=== PATIENT | male | born 1935 | race Caucasian/White ===

== ENCOUNTER 2019-01-30 17:32 | Observation (INO) ==
[2019-01-30 18:14] LABS: Basophils # 0.1 10*3/uL (0.0-0.2); Basophils % 0.5 % (0.0-0.8); Eosinophils # 0.5 10*3/uL (0.0-0.87); Eosinophils % 4.7 % (0.00-10.9); Hematocrit 43.2 VOL% (42.0-52.0); Hemoglobin 14.6 GM/DL (14.0-18.0); Immature Granulocytes % 0.2 %; Immature Granulocytes Absolute 0.02 #; Lymphocytes # 2.4 10*3/uL (1.4-4.0); Lymphocytes % 25.5 % (21.2-54.2); Mean Corpuscular HGB Conc 33.8 GM/DL (32-36); Mean Corpuscular Hemoglobin 31 PG (27-34); Mean Corpuscular Volume 91.9 FL (87-102); Mean Platelet Volume 9.6 FL (9.6-12.0); Monocytes # 0.7 10*3/uL (0.11-0.8); Monocytes % 7.7 % (1.7-12.7); Neutrophils # 5.8 10*3/uL (1.4-7.4); Neutrophils % 61.4 % (38.7-73.9); Platelet Count 193 T/CUMM (130-400); Red Cell Distribution Width 12.6 % (9.3-17.3); White Blood Count 9.5 T/CUMM (4-12)
[2019-01-30 18:43] LABS: Albumin 3.6 G/DL (3.4-5.0); Calcium 8.7 MG/DL (8.5-10.1); Osmolality,Calculated 282.3 MOS/KG (273-304); Potassium 3.6 MMOL/L (3.5-5.1); Thyroid Stimulating Hormone 0.943 uIU/ml (0.358-3.74); Total Protein 6.7 G/DL (6.4-8.3)
[2019-01-30 20:53] LABS: Barbiturates Screen,Urine Negative (Negative); Benzodiazepines Screen,Urine Negative (Negative); Cannabinoid Screen,Urine Negative (Negative); Opiate Screen,Urine Negative (Negative); Phencyclidine Screen,Urine Negative (Negative)
[2019-01-30] MEDS ORDERED: ACETAMINOPHEN 325 MG TABLET PO PRN (23:06)
[2019-01-30] MEDS ORDERED: DOCUSATE SODIUM 100 MG CAPSULE PO PRN (23:06)
[2019-01-30] MEDS ORDERED: FLUTICASONE 50 MCG NASAL SPRAY 16 GM BOTTLE BOTH NARES PRN (23:06)
[2019-01-30] MEDS: TERAZOSIN 5 MG CAPSULE PO SCH (23:40)
[2019-01-30] MEDS: SIMVASTATIN 20 MG TABLET PO SCH (23:40)
[2019-01-30] MEDS: CARVEDILOL 6.25 MG TABLET PO SCH (23:40)
[2019-01-31 00:07] LABS: Troponin I 0.162 NG/ML (0.00-0.045)
[2019-01-31 05:20] LABS: Calcium 8.3 MG/DL (8.5-10.1); Osmolality,Calculated 285.1 MOS/KG (273-304); Potassium 3.3 MMOL/L (3.5-5.1)
[2019-01-31 05:55] LABS: Troponin I 0.173 NG/ML (0.00-0.045)
[2019-01-31] MEDS: LISINOPRIL 20 MG TABLET PO SCH (08:49)
[2019-01-31] MEDS: ASPIRIN EC 81 MG TABLET PO SCH (08:49)
[2019-01-31] MEDS: NIACIN 500 MG TABLET PO SCH ×2 (08:49→22:08)
[2019-01-31] MEDS: MULTIVITAMIN (CENTRUM) TABLET PO SCH (08:50)
[2019-01-31] MEDS: PANTOPRAZOLE 40 MG TABLET PO SCH (08:50)
[2019-01-31] MEDS: CARVEDILOL 6.25 MG TABLET PO SCH ×2 (08:50→22:08)
[2019-01-31] MEDS: POTASSIUM CHLORIDE 20 MEQ TABLET PO PRN ×3 (08:50→13:39)
[2019-01-31] MEDS: OMEGA 3 ACID ETHYL ESTERS 1 GM CAPSULE PO SCH ×2 (08:50→22:08)
[2019-01-31] MEDS: amLODIPine 5 MG TABLET PO SCH (08:50)
[2019-01-31] MEDS ORDERED: NON-FORMULARY MEDICATION (Vit C/Vit E Ac/Lut/Copper/Zinc [Preservision Lutein Softgel] 1 E PO SCH (09:00)
[2019-01-31] MEDS ORDERED: ENOXAPARIN 40 MG/0.4 ML SYRINGE SUBCUT SCH (09:00)
[2019-01-31] MEDS ORDERED: ENOXAPARIN 60 MG/0.6 ML SYRINGE SUBCUT ONE (10:44)
[2019-01-31] MEDS: ENOXAPARIN 100 MG/ML SYRINGE SUBCUT SCH ×2 (10:44→22:08)
[2019-01-31] MEDS: COENZYME Q10 100 MG CAPSULE PO SCH (13:39)
[2019-01-31] MEDS: TERAZOSIN 5 MG CAPSULE PO SCH (22:08)
[2019-01-31] MEDS: SIMVASTATIN 20 MG TABLET PO SCH (22:08)
[2019-02-01 09:04] LABS: Risk Ratio 2.94; VLDL CHOLESTEROL 23.6 MG/DL
[2019-02-01] MEDS: PANTOPRAZOLE 40 MG TABLET PO SCH (09:23)
[2019-02-01] MEDS: NIACIN 500 MG TABLET PO SCH ×2 (09:23→22:03)
[2019-02-01] MEDS: ASPIRIN EC 81 MG TABLET PO SCH (09:23)
[2019-02-01] MEDS: MULTIVITAMIN (CENTRUM) TABLET PO SCH (09:23)
[2019-02-01] MEDS: CARVEDILOL 6.25 MG TABLET PO SCH ×2 (09:23→22:04)
[2019-02-01] MEDS: amLODIPine 5 MG TABLET PO SCH (09:23)
[2019-02-01] MEDS: OMEGA 3 ACID ETHYL ESTERS 1 GM CAPSULE PO SCH ×2 (09:23→22:03)
[2019-02-01] MEDS: LISINOPRIL 20 MG TABLET PO SCH (09:23)
[2019-02-01] MEDS: ENOXAPARIN 100 MG/ML SYRINGE SUBCUT SCH ×2 (09:24→22:04)
[2019-02-01] MEDS: COENZYME Q10 100 MG CAPSULE PO SCH (09:59)
[2019-02-01] MEDS: TERAZOSIN 5 MG CAPSULE PO SCH (22:04)
[2019-02-01] MEDS: SIMVASTATIN 20 MG TABLET PO SCH (22:04)
[2019-02-02 06:16] LABS: Calcium 8.3 MG/DL (8.5-10.1); Osmolality,Calculated 282.3 MOS/KG (273-304); Potassium 3.5 MMOL/L (3.5-5.1)
[2019-02-02 08:08] VITALS: BP 152/75
[2019-02-02] MEDS: CARVEDILOL 6.25 MG TABLET PO SCH (08:39)
[2019-02-02] MEDS: OMEGA 3 ACID ETHYL ESTERS 1 GM CAPSULE PO SCH (08:39)
[2019-02-02] MEDS: LISINOPRIL 20 MG TABLET PO SCH (08:39)
[2019-02-02] MEDS: ASPIRIN EC 81 MG TABLET PO SCH (08:40)
[2019-02-02] MEDS: PANTOPRAZOLE 40 MG TABLET PO SCH (08:40)
[2019-02-02] MEDS: amLODIPine 5 MG TABLET PO SCH (08:40)
[2019-02-02] MEDS: MULTIVITAMIN (CENTRUM) TABLET PO SCH (08:40)
[2019-02-02] MEDS: COENZYME Q10 100 MG CAPSULE PO SCH (08:40)
[2019-02-02] MEDS: NIACIN 500 MG TABLET PO SCH (08:40)
[2019-02-02] MEDS ORDERED: DABIGATRAN 150 MG CAPSULE PO SCH (09:00)
== END 2019-02-02 11:35 | disposition home or self-care (01) ==
LOC: N.EDINP 17:32 → N.ED 17:32 → SUATTDRO 21:20 → N.TELES 22:09
PROVIDERS: ADMIT Internal Medicine; ATTEND Internal Medicine

== ENCOUNTER 2020-12-31 16:17 | Observation (INO) ==
[2020-12-31] MEDS ORDERED: ASPIRIN 325 MG TABLET PO STA (17:50)
[2020-12-31 18:19] LABS: Basophils # 0.1 10*3/uL (0.0-0.2); Basophils % 0.5 % (0.0-0.8); Eosinophils # 0.4 10*3/uL (0.0-0.87); Eosinophils % 4.1 % (0.00-10.9); Hematocrit 46.7 VOL% (42.0-52.0); Hemoglobin 15.5 GM/DL (14.0-18.0); Immature Granulocytes % 0.3 %; Immature Granulocytes Absolute 0.03 #; Lymphocytes # 2.4 10*3/uL (1.4-4.0); Lymphocytes % 25.9 % (21.2-54.2); Mean Corpuscular HGB Conc 33.2 GM/DL (32-36); Mean Corpuscular Volume 89.5 FL (87-102); Mean Platelet Volume 10.3 FL (9.6-12.0); Monocytes % 8.5 % (1.7-12.7); Neutrophils % 60.7 % (38.7-73.9); Platelet Count 237 T/CUMM (130-400); Red Blood Count 5.22 MC/CUMM (3.8-5.5); Red Cell Distribution Width 13.2 % (9.3-17.3); White Blood Count 9.1 T/CUMM (4-12)
[2020-12-31 18:26] LABS: INR 1.1; PT Patient Result 11.9 SECS (9.8-11.9)
[2020-12-31 18:34] LABS: Alanine Aminotransferase 25 U/L (16-61); Albumin 3.8 G/DL (3.4-5.0); Alkaline Phosphatase 75 U/L (45-117); Aspartate Amino Transferase 21 U/L (0-37); Blood Urea Nitrogen 16 MG/DL (7-18); Calcium 9.2 MG/DL (8.5-10.1); Carbon Dioxide 31 MMOL/L (21-32); Estimated Glom Filtration Rate 68 ML/MIN; Glucose 104 MG/DL (74-106); Osmolality,Calculated 275.7 MOS/KG (273-304); Potassium 3.8 MMOL/L (3.5-5.1); Sodium 138 MMOL/L (136-145); Total Protein 7.6 G/DL (6.4-8.3)
[2020-12-31 18:35] LABS: Troponin I 0.199 NG/ML (0.00-0.045)
[2020-12-31] MEDS ORDERED: METOPROLOL TARTRATE 5 MG/5 ML VIAL IV STA (18:36)
[2020-12-31] MEDS ORDERED: DEXTROSE 50% 25 GM/50 ML VIAL IV PRN ×2 (19:12)
[2020-12-31] MEDS ORDERED: GLUCAGON 1 MG VIAL IM PRN ×2 (19:12)
[2020-12-31] MEDS ORDERED: SIMVASTATIN 20 MG TABLET PO SCH (21:00)
[2020-12-31] MEDS ORDERED: TERAZOSIN 5 MG CAPSULE PO SCH (21:00)
[2020-12-31] MEDS ORDERED: DABIGATRAN 150 MG CAPSULE PO SCH (21:00)
[2020-12-31] MEDS ORDERED: MELOXICAM 7.5 MG TABLET PO SCH (21:00)
[2020-12-31] MEDS ORDERED: hydroCHLOROthiazide 12.5 MG CAPSULE PO SCH (21:00)
[2020-12-31] MEDS ORDERED: amLODIPine 5 MG TABLET PO SCH (21:00)
[2020-12-31] MEDS ORDERED: CINNAMON BARK 500 MG PO SCH (21:00)
[2020-12-31] MEDS: carvediloL 12.5 MG TABLET PO SCH (21:53)
[2020-12-31] MEDS: INSULIN LISPRO 100 UNIT/ML SUBCUT SCH (21:53)
[2020-12-31] MEDS: NIACIN 500 MG TABLET PO SCH (21:54)
[2020-12-31] MEDS: OMEGA 3 ACID ETHYL ESTERS 1 GM CAPSULE PO SCH (21:54)
[2020-12-31] MEDS: DABIGATRAN 75 MG CAPSULE PO SCH (21:54)
[2021-01-01 05:34] LABS: Basophils % 0.5 % (0.0-0.8); Eosinophils # 0.4 10*3/uL (0.0-0.87); Eosinophils % 5.6 % (0.00-10.9); Hematocrit 41.3 VOL% (42.0-52.0); Hemoglobin 13.8 GM/DL (14.0-18.0); Immature Granulocytes % 0.3 %; Immature Granulocytes Absolute 0.02 #; Lymphocytes # 2.1 10*3/uL (1.4-4.0); Lymphocytes % 27.7 % (21.2-54.2); Mean Corpuscular HGB Conc 33.4 GM/DL (32-36); Mean Platelet Volume 10.4 FL (9.6-12.0); Neutrophils % 55.9 % (38.7-73.9); Platelet Count 206 T/CUMM (130-400); Red Blood Count 4.64 MC/CUMM (3.8-5.5); Red Cell Distribution Width 13.4 % (9.3-17.3); White Blood Count 7.7 T/CUMM (4-12)
[2021-01-01 06:12] LABS: Calcium 8.6 MG/DL (8.5-10.1); Osmolality,Calculated 281.4 MOS/KG (273-304); Potassium 3.5 MMOL/L (3.5-5.1); Thyroid Stimulating Hormone 1.83 uIU/ml (0.358-3.74)
[2021-01-01] MEDS: INSULIN LISPRO 100 UNIT/ML SUBCUT SCH (08:36)
[2021-01-01 08:40] VITALS: BP 129/68
[2021-01-01] MEDS ORDERED: CHOLECALCIFEROL 1,000 UNIT TABLET PO SCH (09:00)
[2021-01-01] MEDS ORDERED: ASPIRIN EC 81 MG TABLET PO SCH (09:00)
[2021-01-01] MEDS ORDERED: NON-FORMULARY MEDICATION (Calcium-Magnesium-Zinc 333-133-5 mg Tablet) PO SCH (09:00)
[2021-01-01] MEDS ORDERED: lisinopriL 20 MG TABLET PO SCH (09:00)
[2021-01-01] MEDS ORDERED: [UNRECOGNIZED DRUG - REMARK] BOTH NARES SCH (09:00)
[2021-01-01] MEDS ORDERED: COENZYME Q10 100 MG CAPSULE PO SCH (09:00)
[2021-01-01] MEDS ORDERED: ASCORBIC ACID 500 MG TABLET PO SCH (09:00)
[2021-01-01] MEDS ORDERED: MULTIVITAMIN (CENTRUM) TABLET PO SCH (09:00)
[2021-01-01] MEDS: OMEGA 3 ACID ETHYL ESTERS 1 GM CAPSULE PO SCH (09:34)
[2021-01-01] MEDS: DABIGATRAN 75 MG CAPSULE PO SCH (09:34)
[2021-01-01] MEDS: NIACIN 500 MG TABLET PO SCH (09:34)
[2021-01-01] MEDS: carvediloL 12.5 MG TABLET PO SCH (09:35)
== END 2021-01-01 11:18 | disposition home or self-care (01) ==
LOC: N.ED 16:17 → N.EDINP 16:17 → N.TELES 20:32
PROVIDERS: ADMIT Internal Medicine; ATTEND Internal Medicine